=== PATIENT | female | born 1965 | race Caucasian/White ===

== ENCOUNTER 2020-10-22 19:15 | Inpatient (IN) | payer MEDICAID ==
[~2020-10-22] VITALS: Ht 152.4 cm; Wt 79.4 kg
[2020-10-22 19:15] VITALS: BP_SYST 182
[2020-10-22] MEDS ORDERED: ASPIRIN 325 MG TABLET PO ONE (19:45)
[2020-10-22] MEDS ORDERED: NITROGLYCERIN 250 ML IV ONE (19:45)
[2020-10-22 20:16] LABS: BASOPHILS # (AUTO) 0.1 K/uL (0.0-0.2); BASOPHILS % (AUTO) 1.1 % (0.0-2.0); CALCIUM 9.3 mg/dL (8.4-11.0); EOSINOPHILS # (AUTO) 0.1 K/uL (0.0-0.4); EOSINOPHILS % (AUTO) 2.4 % (0.0-4.0); HEMATOCRIT 45.1 % (36-48); LYMPHOCYTES # (AUTO) 1.9 K/uL (1.0-5.5); LYMPHOCYTES % (AUTO) 30.7 % (20.5-51.5); MEAN CORPUSCULAR HEMOGLOBIN 30 pg (27-31); MEAN CORPUSCULAR HGB CONC 33 % (32-36); MEAN CORPUSCULAR VOLUME 89 fL (79.0-98.0); MONOCYTES # (AUTO) 0.5 K/uL (0.0-1.0); MONOCYTES % (AUTO) 7.8 % (1.7-9.3); NEUTROPHILS # (AUTO) 3.6 K/uL (1.8-7.7); POTASSIUM 3.7 mmol/L (3.5-5.1); RED BLOOD CELL COUNT(AUTO) 5.06 MIL/uL (4.2-6.2); RED CELL DISTRIBUTION WIDTH 13.7 % (9.0-15.0); WHITE BLOOD COUNT (AUTO) 6.1 K/uL (4.8-10.8)
[2020-10-22 20:23] LABS: ALBUMIN 3.7 g/dL (3.4-4.8); TOTAL BILIRUBIN 0.2 mg/dL (0.0-1.0)
[2020-10-22 20:29] LABS: PLATELET COUNT (AUTO) 375 K/uL (130-430)
[2020-10-22] MEDS ORDERED: AMLO10TA88 PO (21:02)
[2020-10-22] MEDS ORDERED: ASPI-1155 PO (21:02)
[2020-10-22] MEDS ORDERED: METO25TA6 PO (21:02)
[2020-10-22] MEDS ORDERED: ATEN-41 PO (21:02)
[2020-10-22] MEDS ORDERED: NITR0.4T47 SL (21:02)
[2020-10-22] MEDS ORDERED: LIP40 PO (21:02)
[2020-10-22] MEDS ORDERED: LISI-652 PO (21:02)
[2020-10-22] MEDS ORDERED: CLOP75TA32 PO (21:02)
[2020-10-22] MEDS ORDERED: HEPARIN 25,000 UNITS/D5W 250ML 250 ML IV ONE (22:15)
[2020-10-22] MEDS ORDERED: MORPHINE 2 MG/ML INJ. SYRINGE IVP PRN (22:15)
[2020-10-22 23:00] VITALS: BP_SYST 162
[2020-10-22] MEDS ORDERED: *HEPARIN PER PHARMACY XX ONE (23:15)
[2020-10-22] MEDS ORDERED: HEPARIN SODIUM,PORCINE 2000 UNITS/0.4 ML BOLUS IVP PRN (23:45)
[2020-10-22] MEDS ORDERED: HEPARIN 25,000 UNITS in 250 ML PREMIX IV PRN (23:45)
[2020-10-22] MEDS ORDERED: HEPARIN SODIUM,PORCINE 3000 UNITS/0.6 ML BOLUS IVP PRN (23:45)
[2020-10-22 23:55] VITALS: BP_SYST 162
[2020-10-23] VITALS (17 sets, daily range): BP systolic 115–191
[2020-10-23] MEDS ORDERED: HEPARIN SODIUM, PORCINE 10,000 UNITS/ 10 ML VIAL IV ONE (00:15)
[2020-10-23] MEDS ORDERED: amLODIPine BESYLATE 10 MG TABLET PO ONE (00:30)
[2020-10-23 05:42] LABS: ALBUMIN 3.1 g/dL (3.4-4.8); CALCIUM 8.5 mg/dL (8.4-11.0); CREATININE 0.78 mg/dL (0.55-1.30)
[2020-10-23 05:46] LABS: BASOPHILS # (AUTO) 0.2 K/uL (0.0-0.2); BASOPHILS % (AUTO) 2.9 % (0.0-2.0); EOSINOPHILS # (AUTO) 0.2 K/uL (0.0-0.4); EOSINOPHILS % (AUTO) 3.3 % (0.0-4.0); HEMATOCRIT 41.8 % (36-48); HEMOGLOBIN 13.8 g/dL (12.0-16.0); LYMPHOCYTES # (AUTO) 2.3 K/uL (1.0-5.5); LYMPHOCYTES % (AUTO) 39.6 % (20.5-51.5); MEAN CORPUSCULAR HEMOGLOBIN 29 pg (27-31); MEAN CORPUSCULAR HGB CONC 33 % (32-36); MEAN CORPUSCULAR VOLUME 88 fL (79.0-98.0); MONOCYTES # (AUTO) 0.5 K/uL (0.0-1.0); NEUTROPHILS # (AUTO) 2.6 K/uL (1.8-7.7); NEUTROPHILS % (AUTO) 45.2 % (40.0-70.0); PLATELET COUNT (AUTO) 260 K/uL (130-430); RED BLOOD CELL COUNT(AUTO) 4.73 MIL/uL (4.2-6.2); RED CELL DISTRIBUTION WIDTH 14.1 % (9.0-15.0); WHITE BLOOD COUNT (AUTO) 5.9 K/uL (4.8-10.8)
[2020-10-23 06:01] LABS: TOTAL BILIRUBIN 0.3 mg/dL (0.0-1.0)
[2020-10-23] MEDS ORDERED: NITROGLYCERIN 0.4 MG TAB.SUBL SL SCH (09:00)
[2020-10-23] MEDS: ASPIRIN 81 MG TAB.CHEW PO SCH (09:08)
[2020-10-23] MEDS: ISOSORBIDE MONONITRATE 30 MG TAB.ER.24H PO SCH (09:08)
[2020-10-23] MEDS: METOPROLOL TARTRATE 25 MG TABLET PO SCH (09:08)
[2020-10-23] MEDS: amLODIPine BESYLATE 10 MG TABLET PO SCH (09:09)
[2020-10-23] MEDS: ENOXAPARIN SODIUM 80 MG/0.8 ML SYRINGE SUBCUT SCH ×2 (09:10→21:30)
[2020-10-23] MEDS: CLOPIDOGREL BISULFATE 75 MG TABLET PO SCH (09:10)
[2020-10-23] MEDS ORDERED: TEMAZEPAM 15 MG CAPSULE PO PRN (21:15)
[2020-10-23] MEDS: ATORVASTATIN 20 MG TABLET PO SCH (21:29)
[2020-10-23] MEDS ORDERED: TEMAZEPAM 15 MG CAPSULE ONE (22:10)
[2020-10-24 00:25] VITALS: BP_SYST 147
[2020-10-24 05:32] LABS: CALCIUM 8.7 mg/dL (8.4-11.0); CREATININE 0.6 mg/dL (0.55-1.30); POTASSIUM 3.8 mmol/L (3.5-5.1)
[2020-10-24 06:00] LABS: BASOPHILS # (AUTO) 0.1 K/uL (0.0-0.2); EOSINOPHILS # (AUTO) 0.3 K/uL (0.0-0.4); EOSINOPHILS % (AUTO) 4.1 % (0.0-4.0); HEMATOCRIT 42.9 % (36-48); HEMOGLOBIN 14.1 g/dL (12.0-16.0); LYMPHOCYTES # (AUTO) 1.8 K/uL (1.0-5.5); LYMPHOCYTES % (AUTO) 25.1 % (20.5-51.5); MEAN CORPUSCULAR HEMOGLOBIN 29 pg (27-31); MEAN CORPUSCULAR HGB CONC 33 % (32-36); MEAN CORPUSCULAR VOLUME 89 fL (79.0-98.0); MONOCYTES # (AUTO) 0.6 K/uL (0.0-1.0); MONOCYTES % (AUTO) 8.3 % (1.7-9.3); NEUTROPHILS # (AUTO) 4.4 K/uL (1.8-7.7); NEUTROPHILS % (AUTO) 61.5 % (40.0-70.0); PLATELET COUNT (AUTO) 260 K/uL (130-430); RED CELL DISTRIBUTION WIDTH 13.7 % (9.0-15.0); WHITE BLOOD COUNT (AUTO) 7.1 K/uL (4.8-10.8)
[2020-10-24 08:00] VITALS: BP_SYST 142
[2020-10-24] MEDS: ASPIRIN 81 MG TAB.CHEW PO SCH (08:27)
[2020-10-24] MEDS: ISOSORBIDE MONONITRATE 30 MG TAB.ER.24H PO SCH (08:28)
[2020-10-24] MEDS: amLODIPine BESYLATE 10 MG TABLET PO SCH (08:28)
[2020-10-24] MEDS: CLOPIDOGREL BISULFATE 75 MG TABLET PO SCH (08:29)
[2020-10-24] MEDS: METOPROLOL TARTRATE 25 MG TABLET PO SCH (08:29)
[2020-10-24] MEDS: ENOXAPARIN SODIUM 80 MG/0.8 ML SYRINGE SUBCUT SCH (08:30)
[2020-10-24 12:00] VITALS: BP_SYST 136
[2020-10-24 16:00] VITALS: BP_SYST 140
[2020-10-24 20:15] VITALS: BP_SYST 160
[2020-10-24] MEDS: ATORVASTATIN 20 MG TABLET PO SCH (20:23)
[2020-10-24] MEDS ORDERED: TEMAZEPAM 15 MG CAPSULE PO PRN (22:00)
[2020-10-25 06:36] VITALS: BP_SYST 143
[2020-10-25 08:30] VITALS: BP_SYST 171
[2020-10-25] MEDS: ISOSORBIDE MONONITRATE 30 MG TAB.ER.24H PO SCH (09:02)
[2020-10-25] MEDS: CLOPIDOGREL BISULFATE 75 MG TABLET PO SCH (09:03)
[2020-10-25] MEDS: ASPIRIN 81 MG TAB.CHEW PO SCH (09:03)
[2020-10-25] MEDS: METOPROLOL TARTRATE 25 MG TABLET PO SCH (09:03)
[2020-10-25] MEDS: amLODIPine BESYLATE 10 MG TABLET PO SCH (09:04)
[2020-10-25 11:45] VITALS: BP_SYST 142
[2020-10-25 16:26] VITALS: BP_SYST 122
[2020-10-25 16:29] VITALS: BP_SYST 122
[2020-10-25] MEDS ORDERED: METOPROLOL TARTRATE 25 MG TABLET PO SCH (21:00)
== END 2020-10-25 18:15 | disposition home or self-care (01) | DRG 198 ==
LOC: SED 19:15 → SIC 22:18 → STU 10-23 17:30
PROVIDERS: ADMIT Internal Medicine; ATTEND Internal Medicine
PROC: 5A09457 Assistance with Respiratory Ventilation, 24-96 Consecutive Hours, Continuous Positive Airway Pressure (ICD-10-PCS; principal; 2020-10-23)
DX: I25.119 Atherosclerotic heart disease of native coronary artery with unspecified angina pectoris (principal); E11.9 Type 2 diabetes mellitus without complications; I10 Essential (primary) hypertension; Z20.822 Contact with and (suspected) exposure to COVID-19; E78.5 Hyperlipidemia, unspecified; Z95.1 Presence of aortocoronary bypass graft; Z79.82 Long term (current) use of aspirin; Z79.899 Other long term (current) drug therapy
CPT/HCPCS: 36415; 71045; 80048; 80053; 80061; 82550; 83880; 84484; 85025; 85379; 85730-TC; 87081; 93005; 94760; 96365; 96366; 99291; G0378; J1650; J3490